=== PATIENT | female | born 1990 | race Caucasian/White ===

== ENCOUNTER 2019-02-19 22:02 | Inpatient (IN) | payer MEDICAID, SELFPAY ==
[2019-02-19 21:51] LABS: ROM Internal Control Test YES-OK TO RESULT pt. (Internal QC); ROM Patient Test POSITIVE (Negative)
[2019-02-19] MEDS: 0.9% Saline Lock 10 ML Syringe IV ×2 (23:00→23:10)
[2019-02-19 23:22] LABS: Absolute Lymphocyte Count 2.61 X10^3/ul (0.83-4.51); Absolute Neutrophil Count 10.8 X10^3/uL (2.0-7.7); Basophil# 0.01 X10^3/uL; Basophil% 0.1 % (0-1); Eosinophil# 0.15 X10^3/uL; Hematocrit 33.9 % (37-47); Hemoglobin 11.6 g/dl (12.0-15.0); Lymphocyte # 2.61 X10^3/ul (4.0); Lymphocyte % 17.9 % (19-41); Mean Corp Hgb Conc 34.2 g/gl (32-36); Mean Corpuscular Hgb 30.3 pg (27.0-32.0); Mean Corpuscular Volume 88.5 fL (81-99); Mean Platelet Vol. 9.9 fl (6.2-12.0); Monocyte# 0.97 X10^3/uL; Monocyte% 6.7 % (0-10); Neutrophil # 10.78 X10^3/uL (2.7-7.7); POSITIVE COUNT NO; POSITIVE DIFFERENTIAL NO; POSITIVE MORPHOLOGY NO; Platelet Count 255 K/mm3 (150-450); RBC Distribution Width SD 45.6 fl (35.1-43.9); Red Blood Count 3.83 M/mm3 (4.2-5.4); White Blood Count 14.6 K/mm3 (4.4-11.0)
[2019-02-20] MEDS: Nalbuphine 10 MG/ML Ampul IV (03:40)
[2019-02-20] MEDS: 0.9% Saline Lock 10 ML Syringe IV ×4 (03:40→18:19)
[2019-02-20] MEDS: Lactated Ringers 1,000 ML 50 ML IV ×3 (05:02→16:40)
[2019-02-20] MEDS: Oxytocin 30 units/NS 500 ml 30 UNITS/500 ML IV.SOLN IV (05:04)
[2019-02-20] MEDS: Ondansetron 4 MG/2 ML Vial IV ×3 (05:15→18:19)
[2019-02-20] MEDS: fentaNYL-bupivacaine (epidural) 100 ML BAG EPIDURAL ×3 (06:36→14:52)
--- NOTE | 2019-02-20 10:15 | HP.PCM_ITS ---
- Problem List (1) PROM (premature rupture of membranes) Status: Acute (2) Luong gestation with first Status: Acute (3) History of anxiety Status: Acute (4) History of epilepsy Status: Acute (5) Asthma Status: Acute (6) Rh negative status during Status: Acute (7) History of marijuana use Status: Acute History Date of Admission: 02/19/19 Final ACACIA: 03/03/19 Final ACACIA Source: US <20 weeks Gestational age: 38 Weeks and 3 Days History of this : This is a 28 year-old, G [1], P [0], at 38 weeks gestational age by first trimester US. Premature rupture of membranes around 1920 with clear fluid leakage, no contractions. Presented to labor and delivery with ROM plus negative and grossly ruptured. Denies any headaches, visual changes, chest pain, shortness of breath or vaginal bleeding. Good movement. Allergies Penicillins Allergy (Verified 02/19/19 23:23) Rash sodium benzoate Adverse Reaction (Verified 02/19/19 23:24) Other Home Medications: Home Medications Albuterol Inhaler [Ventolin Hfa (SP)] 2 puff INHALATION Q6H PRN PRN 02/19/19 Calcium Carbonate [Calcium] 500 mg PO DAILY 02/19/19 Ferrous Sulfate 325 mg PO DAILY 02/19/19 Vits [Prenatabs FA] 1 tablet PO DAILY 02/19/19 Smoking Status: Never smoker Alcohol: None Substance Use Type: Marijuana - No current use, urine tox screen negative in 3rd trimester. Heart Tracin, moderate variability, accels, 2 periodic decelerations with movement. TOCO Analysis: Contractions every 2-3 minutes, moderate. Pitocin at 2 mu's History Past Pregnancies: Past Pregnancies Delivery Date Name GA/Weeks Outcome Route Weight Gender Labor Length Anesthesia Delivery Location Provider FOB Labs: GBS negative. 01/08/19-Urine tox screen negative RPR negative Rubella Immune HBsAG negative HIV negative Unable to complete 1hr GCT due to allergy. BS normal range. O negative Expected Delivery Method: Spontaneous Vaginal Review of Systems Constitutional: Denies: Chills, Fever, Weight Change Eyes: Denies: Blurred vision Cardiovascular: Reports: Edema. Denies: Chest Pain Respiratory: Denies: Shortness of Breath Gastrointestinal: Denies: Abdominal Pain Genitourinary: Denies: Dysuria Psychiatric: Denies: Anxiety, Depression, Homicidal Ideations, Suicidal Ideations Physical Exam General: Alert, Oriented x3, No apparent distress HEENT: Atraumatic, Normocephalic Cardiovascular: Regular rate, Regular Rhythm, No murmurs Lungs: Clear to auscultation, Normal air movement, No rhonchi, No wheeze Abdomen: Soft, Non Tender, Gravid Extremities:: Other - +1 BLE edema SEARCH ENGINE OPTIMIZATION ANALYST: Normal external genitalia Estimated gestational size: Appropriate for gestational size Presentation: Cephalic Cervix Dilation (cm): 6.5 - vertex Station: 1 Effacement (%): 95 Assessment/Plan All Active Problems PROM (premature rupture of membranes) (Acute) Luong gestation with first (Acute) History of anxiety (Acute) History of epilepsy (Acute) Asthma (Acute) Rh negative status during (Acute) History of marijuana use (Acute) This is a 28 year-old, G [1], P [0], at 38 weeks gestational age. A:Premature Rupture of Membranes Category 2 FHT P: 1) Admit to L&D. 2) Routine labs 3) Epidural for pain management 4) Cytotec for cervical ripening then Pitocin started, continue with active management. 5) notified of patient in labor and collaborative physician.
--- NOTE | 2019-02-20 11:11 | CASEMGMT ---
SW did receive referral for THC use in first trimester. Pt is in labor at this time. As per RN, pt explains she used marijuana prior to knowing was and has not used since. SW will let SW here on Friday to follow up w/pt, will not see her today since she is currently in labor. ANA LILIA Garcia
--- NOTE | 2019-02-20 11:58 | PCM.PN.OB ---
Patient Problems: Active and Suspected Problems PROM (premature rupture of membranes) (Acute) Luong gestation with first (Acute) History of anxiety (Acute) History of epilepsy (Acute) Asthma (Acute) Rh negative status during (Acute) History of marijuana use (Acute) Subjective: Resting well in bed, sitting up with peanut ball. and friend at bedside. Denies any complaints, epidural effective. Objective: FHT 135, moderate variability, accels, periodic variable decels, Category 2 TOCO: every 2 minutes, strong - Physical Exam Weight: 180 lb 12.465 oz Body Mass Index (BMI) 30.0 Intake and Output for Last 24 Hours 02/18/19 02/19/19 02/20/19 23:59 23:59 23:59 Intake Total 1955 Balance 1955 Laboratory Tests Past 24 Hrs 02/19/19 02/19/19 02/19/19 21:25 23:00 23:00 WBC 14.6 H RBC 3.83 L Hgb 11.6 L Hct 33.9 L MCV 88.5 MCH 30.3 MCHC 34.2 RDW 14.0 RDW Differential 45.6 H Plt Count 255 MPV 9.9 Immature Gran % (Auto) 0.300 Neut % (Auto) 74.0 H Lymph % (Auto) 17.9 L [place] % (Auto) 6.7 Eos % (Auto) 1.0 Baso % (Auto) 0.1 Absolute Neuts (auto) 10.8 H Absolute Lymphs (auto) 2.61 Total Counted Not Reportable Vag Amniotic Fld Detect POSITIVE H Blood Type O NEGATIVE Antibody Screen POSITIVE H Antibody Identification ANTI-D Medical Necessity - Tobacco Use Smoking Status: Never smoker Assessment/Plan All Active Problems PROM (premature rupture of membranes) (Acute) Luong gestation with first (Acute) History of anxiety (Acute) History of epilepsy (Acute) Asthma (Acute) Rh negative status during (Acute) History of marijuana use (Acute) A:Active labor, progressing Category 2 FHT P: 1) Continue with positional changes. Side lying release completed and then placed in hands and knees. 2) Continue with active management. 3) updated on patient status
--- NOTE | 2019-02-20 14:51 | PCM.PN.OB ---
Patient Problems: Active and Suspected Problems PROM (premature rupture of membranes) (Acute) Luong gestation with first (Acute) History of anxiety (Acute) History of epilepsy (Acute) Asthma (Acute) Rh negative status during (Acute) History of marijuana use (Acute) Subjective: Became emotional, stated something felt different and increased pressure. Comfortable with epidural. Family at bedside. Objective: FHT 135, moderate variability, accels, no decels. Category 1 TOCO:every 2-3 minutes, strong. Pitocin at 2 mu's Cervical exam: complete/100%/+2 station - Physical Exam Weight: 180 lb 12.465 oz Body Mass Index (BMI) 30.0 Intake and Output for Last 24 Hours 02/18/19 02/19/19 02/20/19 23:59 23:59 23:59 Intake Total 1955 Balance 1955 Laboratory Tests Past 24 Hrs 02/19/19 02/19/19 02/19/19 21:25 23:00 23:00 WBC 14.6 H RBC 3.83 L Hgb 11.6 L Hct 33.9 L MCV 88.5 MCH 30.3 MCHC 34.2 RDW 14.0 RDW Differential 45.6 H Plt Count 255 MPV 9.9 Immature Gran % (Auto) 0.300 Neut % (Auto) 74.0 H Lymph % (Auto) 17.9 L [place] % (Auto) 6.7 Eos % (Auto) 1.0 Baso % (Auto) 0.1 Absolute Neuts (auto) 10.8 H Absolute Lymphs (auto) 2.61 Total Counted Not Reportable Vag Amniotic Fld Detect POSITIVE H Blood Type O NEGATIVE Antibody Screen POSITIVE H Antibody Identification ANTI-D Medical Necessity - Tobacco Use Smoking Status: Never smoker Assessment/Plan All Active Problems PROM (premature rupture of membranes) (Acute) Luong gestation with first (Acute) History of anxiety (Acute) History of epilepsy (Acute) Asthma (Acute) Rh negative status during (Acute) History of marijuana use (Acute) A: Active Labor, progressing Category 1 FHT P: 1) Complete cervical dilation, will start pushing efforts. Patient not feeling much pressure, requesting anesthesia reduce epidural. Reviewed pain or pressure may return, consents. 2) notified of patient status.
--- NOTE | 2019-02-20 20:37 | PN.OBGYN_ITS ---
Patient Problems: Active and Suspected Problems PROM (premature rupture of membranes) (Acute) Luong gestation with first (Acute) History of anxiety (Acute) History of epilepsy (Acute) Asthma (Acute) Rh negative status during (Acute) History of marijuana use (Acute) Subjective: Pushing during contractions. Epidural effective but having some increased pain on right side. at bedside. Objective: FHT 155, accels, variable decels, Category 2 TOCO: every 2-3 minutes Pitocin at 10mu's Complete +2 almost +3 station. Labial separation and movement of head. Caput present. - Physical Exam Weight: 180 lb 12.465 oz Body Mass Index (BMI) 30.0 Intake and Output for Last 24 Hours 02/18/19 02/19/19 02/20/19 23:59 23:59 23:59 Intake Total 3891 / 3891 Output Total 2300 / 2300 Balance 1591 / 1591 Laboratory Tests Past 24 Hrs 02/19/19 02/19/19 02/19/19 21:25 23:00 23:00 WBC 14.6 H RBC 3.83 L Hgb 11.6 L Hct 33.9 L MCV 88.5 MCH 30.3 MCHC 34.2 RDW 14.0 RDW Differential 45.6 H Plt Count 255 MPV 9.9 Immature Gran % (Auto) 0.300 Neut % (Auto) 74.0 H Lymph % (Auto) 17.9 L [place] % (Auto) 6.7 Eos % (Auto) 1.0 Baso % (Auto) 0.1 Absolute Neuts (auto) 10.8 H Absolute Lymphs (auto) 2.61 Total Counted Not Reportable Vag Amniotic Fld Detect POSITIVE H Blood Type O NEGATIVE Antibody Screen POSITIVE H Antibody Identification ANTI-D Medical Necessity - Tobacco Use Smoking Status: Never smoker Assessment/Plan All Active Problems PROM (premature rupture of membranes) (Acute) Luong gestation with first (Acute) History of anxiety (Acute) History of epilepsy (Acute) Asthma (Acute) Rh negative status during (Acute) History of marijuana use (Acute) A:Active Labor, second stage Category 2 FHT P: 1) Pushing efforts since approximately 1500. Pushing ineffective and contractions spaced out. Pitocin increased. Patient with minimal pushing effort during contractions and spacing. Contraction pattern returned and pushing effort effect. heart rate stable. Reviewed with patient option for section if she declined further pushing due to length of time, although pushing efforts were limited due to contraction spacing. She wishes to proceed with labor. If proceeds and needs vacuum extraction will request . 2) notified of patient status and updated. She agrees with plan at this time. 3) Continue with pushing efforts at this time.
[2019-02-20] MEDS: Oxytocin 30 units/NS 500 ml 30 UNITS/500 ML IV.SOLN 334 UNITS IV (21:47)
--- NOTE | 2019-02-20 22:00 | PCM.OPRPT ---
Report of Operation specifications writer: Candace Gardner Vaginal Delivery Maternal Presentation: Spontaneous Rupture of Membranes Method of Induction: Pitocin Amniotic Membrane Rupture Type: Spontaneous at home Amniotic Fluid Description: Clear Final ACACIA: 03/03/19 Gestational age: 38 Weeks and 3 Days Date of Procedure: 02/20/19 Pre-Operative Diagnosis: (1) SROM (2) Maternal exhaustion Post-Operative Diagnosis: Same Surgery/ Procedure Performed: Vacuum Assisted Vaginal Delivery Type of Anesthesia: Epidural Description of Procedure: Called to room when patient C/C/+2 and pushing with CNM. Patient exhausted from pushing. Patient assessed & confirmed good maternal pushing effort. head position checked. Discussed R/B/A of vacuum and patient agreed to proceed for maternal exhaustion. Bladder drained with borrego catheter. Vacuum placed & position confirmed on head. With the next contraction and 1 pull of the vacuum the head delivered. Vacuum released. head gently guided to allow delivery of anterior & posterior shoulders. No excess traction placed on head. Body delivered & placed on maternal abdomen. 3VC clamped & cut in delayed fashion. Good uterine tone obtained. Presentation: KATI Placental Delivery Description: Expressed Placenta Disposition: [facility] Cord Vessel Description: 3 Vessels Cord Entanglement: None Estimated Blood Loss: 400ml A gender: Female (1 minute): 8 (5 minute): 9 Episiotomy Description: None Laceration: 1st degree - perineal - repaired with 3-0 vicryl Medications given after delivery: IV Pitocin Complications: None
[2019-02-20] MEDS: Oxytocin 30 units/NS 500 ml 30 UNITS/500 ML IV.SOLN 167 UNITS IV (22:18)
[2019-02-21] MEDS: Ibuprofen 600 MG Tablet PO ×2 (00:21→08:19)
[2019-02-21] MEDS: Acetaminophen 500 MG Tablet 1000 MG PO ×3 (02:26→22:05)
[2019-02-21 08:10] VITALS: BP 112/73; PULSE 76; RESP 16; TEMP 36.6; O2SAT 96
[2019-02-21 12:40] VITALS: BP 122/82; PULSE 78; RESP 16; TEMP 36.6; O2SAT 96
--- NOTE | 2019-02-21 12:45 | PCM.PN.OB ---
Patient Problems: Active and Suspected Problems PROM (premature rupture of membranes) (Acute) Luong gestation with first (Acute) History of anxiety (Acute) History of epilepsy (Acute) Asthma (Acute) Rh negative status during (Acute) History of marijuana use (Acute) Subjective: Doing well per patient and nursing staff. Ambulating and taking PO without difficulty. Voiding and passing flatus. Pain control with Motrin and Tylenol but states is still increased. Having lower back pain, abdominal cramping and perineal pain. without difficulty at this time. Denies any chest pain, increased SOB, increased vaginal or clots. - Physical Exam General: Alert, Oriented x3, Cooperative HEENT: Atraumatic, Normocephalic Neck: Trachea Midline Lungs: Clear to auscultation, Normal air movement, No rhonchi, No wheeze Cardiovascular: Regular rate, Regular Rhythm, No murmurs Abdomen: Bowel Sounds Present, Soft, - - Appropriately tender, Fundus firm 2 below U Extremities: No edema Psych/Mental Status: Normal Affect, Appropriate Comment: Perineum nonedematous, lochi rubra small amount. Sutures well appoximated. Weight: 180 lb 12.465 oz Body Mass Index (BMI) 30.0 Intake and Output for Last 24 Hours 02/19/19// 23:59 23:59 23:59 Intake Total 5339 / 5339 Output Total 2900 / 2900 800 / 800 Balance 2439 / 2439 -800 / -800 Medical Necessity - Tobacco Use Smoking Status: Never smoker Assessment/Plan All Active Problems PROM (premature rupture of membranes) (Acute) Luong gestation with first (Acute) History of anxiety (Acute) History of epilepsy (Acute) Asthma (Acute) Rh negative status during (Acute) History of marijuana use (Acute) A: PPD #1 VAVD P: 1) Routine care. 2) Reviewed instructions 3) Discussed pain management. Ok to take oxycodone for pain. Reviewed alternating Tylenol and Ibuprofen. Offered Kpad, tuck pads, dermaplast spray, and ice pack. 4) Planning D/C home tomorrow.
[2019-02-21] MEDS: oxyCODONE 5 MG Tablet PO ×4 (12:57→23:48)
[2019-02-21 16:45] VITALS: BP 118/82; PULSE 80; RESP 16; TEMP 36.5; O2SAT 98
[2019-02-21 20:17] VITALS: BP 119/80; PULSE 85; RESP 16; TEMP 36.9; O2SAT 96
[2019-02-22 02:00] VITALS: BP 110/63; PULSE 90; RESP 17; TEMP 36.4; O2SAT 96
[2019-02-22] MEDS: Ibuprofen 600 MG Tablet PO (03:43)
--- NOTE | 2019-02-22 07:20 | PCM.PN.OB ---
Patient Problems: Active and Suspected Problems PROM (premature rupture of membranes) (Acute) Luong gestation with first (Acute) History of anxiety (Acute) History of epilepsy (Acute) Asthma (Acute) Rh negative status during (Acute) History of marijuana use (Acute) Subjective: pt seen at bedside, c/o some discomfort on perineum but otherwise doing well. pt reports the motrin does help but can't take regularly due to vomiting. pt reports breast feeding going well. Lochia mild. voiding w/o difficulty. - Physical Exam General: Alert, Oriented x3 Vital Signs Temp Pulse Resp BP Pulse Ox 97.6 F L 90 17 110/63 96 02/22/19 02:00 02/22/19 02:00 02/22/19 02:00 02/22/19 02:00 02/22/19 02:00 Oxygen Delivery Method Room Air Weight: 82 kg Body Mass Index (BMI) 30.0 Intake and Output for Last 24 Hours 02/20/19 02/21/19 02/22/19 23:59 23:59 23:59 Intake Total 5339 / 5339 Output Total 2900 / 2900 1400 / 1400 Balance 2439 / 2439 -1400 / -1400 Medical Necessity - Tobacco Use Smoking Status: Never smoker Assessment/Plan All Active Problems PROM (premature rupture of membranes) (Acute) Luong gestation with first (Acute) History of anxiety (Acute) History of epilepsy (Acute) Asthma (Acute) Rh negative status during (Acute) History of marijuana use (Acute) PPD#2, doing well routine care pain mgmt dc home
--- NOTE | 2019-02-22 07:27 | DCINST_ITS ---
Discharge Diet: No Restrictions Discharge Activity: Return to Normal Activity, May not drive while taking narcotic pain medications., May Shower May resume sexual activity in: 4-6 weeks Additional Activity Instructions:: Nothing in the vagina for 4-6 weeks. You may return to work/school in 6 weeks. Call your doctor if your incision/area has: Continuous Slow Oozing, Sudden Increased Bleeding, Increased Pain/ Swelling, Increased Redness, Foul Smelling Discharge Additional Instructions: If you experience any of the following, contact your healthcare provider. * Bleeding that soaks a pad every hour for 2 hours * Fever 100.4 or higher * Unrelieved incision or abdominal pain * Swelling, redness, discharge or bleeding from your incision or episiotomy site * Your incision begins to separate * Problems urinating (including inability to urinate or burning while urinating). * Visual changes * Severe headache * Flu-like symptoms * Pain or redness in one of both of your breasts * Pain, warmth, tenderness or swelling in your legs, especially the calf area * Frequent nausea and vomiting * Symptoms of depression or anxiety If you experience any of the following, call 911 or go to the nearest Emergency Room. * Chest pain * Problems breathing * Seizure activity * Partial or complete paralysis of a body part, slurred speech, weakness or drooping of the face, or a sudden inability to walk or hold your balance Allergies/Adverse Reactions: Allergies Penicillins Allergy (Verified 02/19/19 23:23) Rash sodium benzoate Adverse Reaction (Verified 02/19/19 23:24) Other Medications to take at Discharge Albuterol Inhaler [Ventolin Hfa (SP)] 2 puff INHALATION Q6H PRN PRN 02/19/19 Calcium Carbonate [Calcium] 500 mg PO DAILY 02/19/19 Ferrous Sulfate 325 mg PO DAILY 02/19/19 Vits [Prenatabs FA] 1 tablet PO DAILY 02/19/19 Ibuprofen [Motrin] 600 mg PO Q6H PRN PRN #30 tab 02/22/19 Oxycodone [Oxyfast] 5 mg PO Q4H PRN PRN #5 ml 02/22/19 Oxycodone [Oxyir] 5 mg PO Q4H PRN PRN 3 Days #5 tablet 02/22/19 The following prescriptions were given: Oxycodone [Oxyfast] 5 mg PO Q4H PRN PRN #5 ml PRN Reason: Pain Ibuprofen [Motrin] 600 mg PO Q6H PRN PRN #30 tab PRN Reason: Mild Pain (1-11/15) When: Call to make an appointment with your doctor in 6 weeks. If you had elevated Blood Pressure or 4th degree laceration you will need to be seen in 2 weeks. Primary Care Physician: Care Physician,No Primary [Primary Care Provider] - Test Results: Test results from this visit will be discussed in further detail at your follow- up appointment, if applicable.
--- NOTE | 2019-02-22 07:33 | DCINST_ITS ---
Discharge Diet: No Restrictions Discharge Activity: Return to Normal Activity, May not drive while taking narcotic pain medications., May Shower May resume sexual activity in: 4-6 weeks Additional Activity Instructions:: Nothing in the vagina for 4-6 weeks. You may return to work/school in 6 weeks. Call your doctor if your incision/area has: Continuous Slow Oozing, Sudden Increased Bleeding, Increased Pain/ Swelling, Increased Redness, Foul Smelling Discharge Additional Instructions: If you experience any of the following, contact your healthcare provider. * Bleeding that soaks a pad every hour for 2 hours * Fever 100.4 or higher * Unrelieved incision or abdominal pain * Swelling, redness, discharge or bleeding from your incision or episiotomy site * Your incision begins to separate * Problems urinating (including inability to urinate or burning while urinating). * Visual changes * Severe headache * Flu-like symptoms * Pain or redness in one of both of your breasts * Pain, warmth, tenderness or swelling in your legs, especially the calf area * Frequent nausea and vomiting * Symptoms of depression or anxiety If you experience any of the following, call 911 or go to the nearest Emergency Room. * Chest pain * Problems breathing * Seizure activity * Partial or complete paralysis of a body part, slurred speech, weakness or drooping of the face, or a sudden inability to walk or hold your balance Allergies/Adverse Reactions: Allergies Penicillins Allergy (Verified 02/19/19 23:23) Rash sodium benzoate Adverse Reaction (Verified 02/19/19 23:24) Other Medications to take at Discharge Albuterol Inhaler [Ventolin Hfa] 2 puff INHALATION Q6H PRN PRN 02/19/19 Calcium Carbonate [Calcium] 500 mg PO DAILY 02/19/19 Ferrous Sulfate 325 mg PO DAILY 02/19/19 Vits [Prenatabs FA ] 1 tablet PO DAILY 02/19/19 Ibuprofen [Motrin] 600 mg PO Q6H PRN PRN #30 tab 02/22/19 Oxycodone HCl/Acetaminophen [Percocet 5/325] 1 - 2 tab PO Q4H PRN PRN 3 Days #5 tab 02/22/19 The following prescriptions were given: Oxycodone HCl/Acetaminophen [Percocet 5/325] 1 - 2 tab PO Q4H PRN PRN 3 Days #5 tab PRN Reason: Pain Ibuprofen [Motrin] 600 mg PO Q6H PRN PRN #30 tab PRN Reason: Mild Pain (1-11/15) When: Call to make an appointment with your doctor in 6 weeks. If you had elevated Blood Pressure or 4th degree laceration you will need to be seen in 2 weeks. Primary Care Physician: Care Physician,No Primary [Primary Care Provider] - Test Results: Test results from this visit will be discussed in further detail at your follow- up appointment, if applicable.
[2019-02-22] MEDS: Acetaminophen 500 MG Tablet 1000 MG PO ×2 (07:57→15:20)
[2019-02-22 08:45] VITALS: BP 126/88; PULSE 90; RESP 16; TEMP 36.7; O2SAT 98
[2019-02-22] MEDS: oxyCODONE 5 MG Tablet PO (09:04)
[2019-02-22 14:00] VITALS: BP 122/79; PULSE 80; RESP 16; TEMP 36.6; O2SAT 99
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
[2019-02-22] MEDS: Senna/Docusate Sodium 1 Tablet PO (15:20)
== END 2019-02-22 16:20 | disposition home or self-care (01) | DRG 560 ==
LOC: WPOUT 22:04
PROVIDERS: Advanced Practice Midwife; Admitting Provider Obstetrics & Gynecology; Referring Provider Obstetrics & Gynecology; Visit Provider Obstetrics & Gynecology
DX: O42.90 Premature rupture of membranes, unspecified as to length of time between rupture and onset of labor, unspecified weeks of gestation (principal); O75.81 Maternal exhaustion complicating labor and delivery; O70.0 First degree perineal laceration during delivery; O76 Abnormality in fetal heart rate and rhythm complicating labor and delivery; O99.52 Diseases of the respiratory system complicating childbirth; J45.909 Unspecified asthma, uncomplicated; Z67.91 Unspecified blood type, Rh negative; Z88.0 Allergy status to penicillin; Z3A.38 38 weeks gestation of pregnancy; Z37.0 Single live birth
CPT/HCPCS: 59025; 59050; 84112; 85025; 86850; 86870; 86900; 99218; J7120; A4216; G0378; J2405

== ENCOUNTER 2021-03-06 14:37 | Outpatient (RCR) | payer MEDICAID, SELFPAY | END 2021-03-07 23:59 | LOC: DC 14:37 | PROVIDERS: Visit Provider Advanced Practice Midwife | DX: O24.410 Gestational diabetes mellitus in pregnancy, diet controlled (principal); Z3A.00 Weeks of gestation of pregnancy not specified | CPT/HCPCS: 97802 ==

== ENCOUNTER 2021-03-28 13:00 | Outpatient (RCR) | payer MEDICAID, SELFPAY | END 2021-03-28 23:59 | disposition home or self-care (01) | LOC: DC 13:00 | PROVIDERS: Visit Provider Advanced Practice Midwife | DX: O24.410 Gestational diabetes mellitus in pregnancy, diet controlled (principal) | CPT/HCPCS: G0108 ==

== ENCOUNTER 2021-04-09 15:30 | Inpatient (IN) | payer MEDICAID, SELFPAY ==
[2021-04-09] VITALS (35 sets, daily range): BP systolic 104–140; BP diastolic 59–93; PULSE 95–127; TEMP 36.2–36.9; O2SAT 82–100; BMI 26.6
--- NOTE | 2021-04-09 | PLAC_PTH ---
PATIENT: ALEENA BARBER LOC: WP U#:[id number] AGE/SX: 30/F ROOM: WP011 RE04/09/[address]: Dr. Junaid Carlin MD : 1990 BED: 1 DIS: 04/11/2021 SPEC #: [id number] RECD: 04/10/21 02:44 STATUS: EDUARDO WAGNER #: [id number] SHYANNE: 04/09/21 00:[address]: Candace Gardner DEPT: SURGICAL PATHOLOGY RECD BY: Sanjeev Mckeon ENTERED: 04/10/21 08:09 SP TYPE: PLACENTA OTHR DR: Dr. Bang Mccoy MD No Primary Care Phys Tissues: Placenta, NOS Procedures: Surgery Specimen Level V HEADER OPERATION: Vaginal delivery PRE-OP DIAGNOSIS: Cord insertion TISSUE SUBMITTED: Placenta MICROSCOPIC DIAGNOSIS Luong placenta (422 gm): Umbilical cord ? trivascular with no inflammation. Placental membranes ? no pathologic change. Placental disc ? mild Magdi-Shaji change and intervillous congestion. AM:servando 04/12/2021 MICROSCOPIC DESCRIPTION Slides are reviewed. GROSS DESCRIPTION SPECIMEN: PLACENTA / CLINICAL INFORMATION: A. Weight: 3.1 kg B. Gestational Age: 38 weeks C. Sex: Female PLACENTAL WEIGHT (POST FIXATION): 422 gm PLACENTAL DIMENSIONS: 15 x 16 x 3 cm PLACENTAL SHAPE: Usual ovoid PLACENTAL WEIGHT FOR GESTATIONAL AGE: Within 10-99th percentile MEMBRANES - Present A. Insertion: Marginal B. Site of rupture from edge: 4 cm from edge of placental disc C. Color of membrane: Thomas-allison D. Abnormalities: None UMBILICAL CORD - Present A. Color: Thomas-allison B. Insertion: Paracentral C. Length: 27 cm D. Diameter: 1 cm E. Number of vessels: Three F. Abnormalities: None PLACENTAL DISC - Present A. Color of surface: Thomas-allison B. surface abnormalities: None C. Maternal cotyledons: Intact with minimal tears D. Attached retro placental clot: No clot E. Cut surface: Dark red and spongy F. Lesions: None G. Separate clot: Absent SECTIONS SUBMITTED: 1. Membrane roll 2. Cord, maternal end 3. Cord, end 4. Placental disc, and maternal surfaces 5. Placental disc, and maternal surfaces 6. Placental disc, and maternal surfaces SJ:servando 04/11/2021 TC:5 CPT: 84729
[2021-04-09 15:18] LABS: ROM Internal Control Test YES-OK TO RESULT pt. (Internal QC)
[2021-04-09 15:19] LABS: ROM Patient Test POSITIVE (Negative)
[2021-04-09] MEDS: Lactated Ringers 1,000 ML 50 ML IV (16:25)
[2021-04-09] MEDS: Oxytocin 30 units/NS 500 ml 30 UNITS/500 ML IV.SOLN IV (16:41)
[2021-04-09 16:50] LABS: Absolute Lymphocyte Count 0.81 X10^3/uL (0.83-4.51); Absolute Neutrophil Count 8.7 X10^3/uL (2.0-7.7); Basophil# 0.02 X10^3/uL; Basophil% 0.2 % (0-1); Eosinophil# 0.01 X10^3/uL; Eosinophils% 0.1 % (0-5); Hematocrit 38.6 % (37-47); Hemoglobin 12.7 g/dL (12.0-15.0); Lymphocyte # 0.81 X10^3/ul (0.83-4.51); Mean Corp Hgb Conc 32.9 g/dL (32-36); Mean Corpuscular Hgb 29.1 pg (27.0-32.0); Mean Corpuscular Volume 88.3 fL (81-99); Mean Platelet Vol. 9.5 fl (6.2-12.0); Monocyte# 0.47 X10^3/uL; Monocyte% 4.6 % (0-10); NRBC Flagged by Analyzer 0 % (0-5); Neutrophil # 8.73 X10^3/uL (2.7-7.7); Neutrophil % 86.3 % (47-70); Platelet Count 403 K/mm3 (150-450); RBC Distribution Width CV 14.7 % (11.6-14.6); RBC Distribution Width SD 47.1 fl (35.1-43.9); Red Blood Count 4.37 M/mm3 (4.2-5.4); White Blood Count 10.1 K/mm3 (4.4-11.0)
[2021-04-09] MEDS: Lactated Ringers 500 ML 999 ML IV (17:25)
[2021-04-09 17:30] LABS: Bedside Glucose 76 mg/dL (70-110)
[2021-04-09] MEDS: fentaNYL-bupivacaine (epidural) 100 ML BAG EPIDURAL (18:32)
[2021-04-09] MEDS: Ondansetron 4 MG/2 ML Vial IV (19:10)
[2021-04-09 19:32] LABS: Amphetamine Urine VISTA NEGATIVE (<1000 ng/mL); Barbiturate Urine VISTA NEGATIVE (< 200 ng/mL); Benzodiazepine Urine VISTA NEGATIVE (< 200 ng/mL); Cocaine Urine VISTA NEGATIVE (< 300 ng/mL); Ecstacy Urine VISTA NEGATIVE (< 500 ng/mL); Methadone Urine VISTA NEGATIVE (< 300 ng/mL); PCP Urine VISTA NEGATIVE (< 25 ng/mL); THC Urine VISTA POSITIVE (< 50 ng/mL); Vista UDS pH Range 5
[2021-04-09] MEDS: Oxytocin 30 units/NS 500 ml 30 UNITS/500 ML IV.SOLN 334 UNITS IV (20:04)
[2021-04-09 20:21] LABS: Bedside Glucose 73 mg/dL (70-110)
[2021-04-09 20:21] LABS: Bedside Glucose 70 mg/dL (70-110)
--- NOTE | 2021-04-09 20:33 | OP.PCM_ITS ---
Assessment & Plan (1) (normal spontaneous vaginal delivery): (2) COVID-19 affecting childbirth: (3) GDM, class A2: Maternal Data Information ACACIA Calculator Estimated Delivery Date Method Current WG Current Estimate 04/22/21 Manual 38w 1d Vaginal Delivery Maternal Presentation Maternal Presentation: Spontaneous Rupture of Membranes Maternal Presentation: PROM Type of Induction: Pitocin (augmentation) Operative Information Date of Procedure: 04/09/21 Pre-Operative Diagnosis: PROM Post-Operative Diagnosis: Surgery / Procedure Performed: Spontaneous Vaginal Delivery Type of Anesthesia: Epidural Estimated Blood Loss: 200ml Time of Delivery: 20:02 Findings Description of Procedure: Progressed to complete and urged to push. Epidural for pain management. of viable female infant over first-degree perineal laceration. Apgars 8, 9. Infant head delivered with cord around the neck x1, delivered through, body immediately forthcoming and placed on maternal abdomen. Spontaneous cry, mouth and nares suction for secretions. Pitocin started effective third stage management. Placenta delivered intact, three-vessel cord via Gomez, cord began to shear, specimen sent to pathology for possible marginal/velamentous insertion. Perineum inspected and revealed small first- degree laceration, repaired under epidural with 3.0 Vicryl repeat. Fundus firm and hemostasis achieved, EBL 200 mL. Vaginal sweep completed by me, sponge and instrument count correct. Mom and baby stable, planning to breast-feed, bonding well. [facility] for delivery due to GDM class A2. Presentation: Vertex and HUNTER Amniotic Membrane Rupture Type: Spontaneous Time of Membrane Rupture: 1200 Amniotic Fluid Description: Clear Placental Delivery Description: Spontaneous Placenta Disposition: Sent to Pathology Cord Vessel Description: 3 Vessels Cord Entanglement: Around neck x 1, loose Nuchal Cord Compression: Without compression Infant A Gender: Female (1 minute): 8 (5 minute): 9 Delayed Cord Clamping: Yes Post Vaginal Delivery Medications Given After Delivery: IV Pitocin Episiotomy Description: None Laceration: Perineal Extension/lac and 1st degree Complication Complications: None
--- NOTE | 2021-04-09 20:33 | PCM.HP.OB ---
HPI - General General Date of Admission: 04/09/21 HPI Narrative ALEENA BARBER, is a 30 F who presents at 38w1d by 7w3d US with PROM at 1200 today for clear fluid. Started having respiratory symptoms on 04/01/21 and tested positive for COVID on 04/05/21, 8 days post positive test. Cough and SOB at times, nebulizer and inhaler for symptom relief. No chest pain. complicated by GDMA2 on insulin therapy, history of anxiety, asthma, FOB born with spina bifida occulta and cystinuria. Maternal Data Information ACACIA Calculator Estimated Delivery Date Method Current WG Current Estimate 04/22/21 Manual 38w 1d PFSH PFS Medical History (Updated 04/09/21 @ 20:48 by Candace Gardner CNM) Anxiety Family history of hearing loss at age younger than 7 years Gestational diabetes Headache PCOS (polycystic ovarian syndrome) Seizures Home Medications Prenatabs FA 1 tab PO DAILY 02/19/19 [History Last Taken 04/04/21] albuterol sulfate [Ventolin HFA] 2 puff INHALATION Q6H PRN PRN 02/19/19 [History Last Taken 04/02/21] calcium carbonate 500 mg PO DAILY 02/19/19 [History Last Taken 02/18/19 17:00] ferrous sulfate 325 mg PO DAILY 02/19/19 [History Last Taken 04/04/21] albuterol sulfate [Proventil] 2.5 mg INHALATION Q4H PRN 04/09/21 [History Last Taken 04/09/21 11:00] insulin NPH and regular human [Novolin 70-30 FlexPen U-100] 16 unit SUBCUT QHS 04/09/21 [History Last Taken 04/08/21 21:30] Allergy/AdvReac Type Severity Reaction Status Date / Time Penicillins Allergy Rash Verified 04/09/21 14:32 sodium benzoate AdvReac Other Verified 04/09/21 14:32 Surgical History (Updated 04/09/21 @ 16:49 by Berta Razo) History of gynecologic surgery Social History Smoking Status: Never smoker History Elective abortions Hx Para 1 Spontaneous abortions Hx # Term Pregnancies Ectopic pregnancies Hx # Pregnancies Multiple births # of living children NST FHR Rate Baby A Baseline: 135 Variability:: Moderate Accelerations:: 15 x 15 Decelerations:: None FHR Category:: Category I Uterine Activity:: Every 3 minutes, strong Vital Signs Vital Signs Vital Signs: 04/09/21 14:28 04/09/21 14:40 04/09/21 16:59 Temperature 97.4 F L 98.1 F Temperature Source Temporal Temporal Pulse Rate 126 H 115 H 102 H Blood Pressure 129/80 H 120/75 BP Systolic 129 120 BP Diastolic 80 75 Pulse Ox 97 97 04/09/21 17:00 04/09/21 18:10 04/09/21 18:19 Temperature Temperature Source Pulse Rate 108 H 108 H Blood Pressure 130/83 H BP Systolic 130 BP Diastolic 83 Pulse Ox 82 97 04/09/21 18:24 04/09/21 18:29 04/09/21 18:34 Temperature Temperature Source Pulse Rate 98 106 H 105 H Blood Pressure 129/84 H 124/85 H 135/89 H BP Systolic 129 124 135 BP Diastolic 84 85 89 Pulse Ox 98 98 98 04/09/21 18:39 04/09/21 18:44 04/09/21 18:49 Temperature Temperature Source Pulse Rate 108 H 99 102 H Blood Pressure 126/86 H 125/80 H 122/80 H BP Systolic 126 125 122 BP Diastolic 86 80 80 Pulse Ox 99 100 100 04/09/21 18:54 04/09/21 18:59 04/09/21 19:04 Temperature Temperature Source Pulse Rate 108 H 104 H 104 H Blood Pressure 140/93 H 117/77 BP Systolic 140 117 BP Diastolic 93 77 Pulse Ox 100 100 100 04/09/21 19:09 04/09/21 19:40 04/09/21 20:11 Temperature 98.1 F Temperature Source Temporal Pulse Rate 101 H 105 H Blood Pressure 123/85 H 125/78 H BP Systolic 123 125 BP Diastolic 85 78 Pulse Ox 96 04/09/21 20:26 04/09/21 20:28 Temperature Temperature Source Pulse Rate 108 H 106 H Blood Pressure 112/67 108/66 BP Systolic 112 108 BP Diastolic 67 66 Pulse Ox Weight Weight: 160 lb Body Mass Index (BMI) 26.6 Physical Exam Const alert, oriented x3 and no apparent distress General Appearance: cooperative HEENT normocephalic Head and Scalp: normocephalic Neck full ROM Chest inspection of chest normal Resp normal respiratory effort Auscultation: clear to auscultation bilaterally Cardio regular rate, regular rhythm and no murmurs GI non-tender GI Narrative: [facility] Labs Labs: Blood Type O NEGATIVE Antibody Screen POSITIVE H Hct 38.6 % (37-47) Hgb 12.7 g/dL (12.0-15.0) Rhogam given: No GBS negative O negative RPR negative HepC negative Urine tox negative HIV negative Rubella Immune HbsAG negative GC/CT negative Assessment & Plan (1) PROM (premature rupture of membranes): (2) History of anxiety: (3) Asthma: (4) Rh negative status during : (5) Term : (6) GDM, class A2: (7) COVID-19 affecting childbirth: PLAN: 1. Admit to labor and delivery, ROM plus positive 2. Covid +8 days ago, droplet precautions. Stable. 3. Routine labs 4. Epidural for pain management 5. Blood sugar per diabetic protocol 6. Pitocin for PROM augmentation 7. Dr. Manzano notified of patient admission and GDM class A2, orders for diabetic management. 8. with cough and unable to be present at , another support person present
[2021-04-09 22:10] LABS: Bedside Glucose 91 mg/dL (70-110)
[2021-04-09] MEDS: 0.9% Saline Lock 10 ML Syringe IV (22:38)
[2021-04-09] MEDS: Ibuprofen 600 MG Tablet PO (23:26)
--- NOTE | 2021-04-09 23:49 | RAD_ITS ---
STUDY: X-RAY CHEST REASON FOR EXAM: Female, 30 years old. covid+ -- SOB ,crackles to bilat posterior bases TECHNIQUE: Single AP portable view of the chest. COMPARISON: None. FINDINGS: Left lower lobe airspace disease compatible with pneumonia. Otherwise, lungs are clear. There is no demonstrated pleural abnormality. Normal size heart. Normal mediastinum and clay. Normal visualized pulmonary arteries. Normal visualized aortic arch and descending thoracic aorta. Normal visualized thoracic spine. Normal visualized ribs, clavicles, and shoulders. There is no demonstrated abnormality of the visualized soft tissue structures of the upper abdomen. RAD/Chest 1 View (Portable) IMPRESSION: Left lower lobe pneumonia Electronically Signed: Ben Coleman DO at 0:45 EDT Tel , Service support ,
[2021-04-10] VITALS (21 sets, daily range): BP systolic 105–125; BP diastolic 64–86; PULSE 77–118; RESP 16–18; TEMP 36–36.4; O2SAT 93–99
--- NOTE | 2021-04-10 00:20 | NURSING ---
Pearl RT into room to see pt. placed on 2 L 02 via NC. spo2 now 98% on 2 L. will continue to monitor
--- NOTE | 2021-04-10 00:47 | NURSING ---
PT educated on covid precautions and importance of wearing a mask covering mouth and nose while holding and when infant is within 6 feet. also discussed the importance of hand hygiene especially prior to holding . pt verbalized understanding
[2021-04-10] MEDS: Enoxaparin 40 MG/0.4 ML Syringe SC (01:29)
[2021-04-10] MEDS: AMOXICILLIN 500 MG CAPSULE PO ×4 (01:59→22:01)
[2021-04-10] MEDS: Acetaminophen 500 MG Tablet 1000 MG PO ×2 (04:34→11:12)
[2021-04-10 05:25] LABS: Hematocrit 33.5 % (37-47); Mean Corp Hgb Conc 32.8 g/dL (32-36); Mean Corpuscular Hgb 29.1 pg (27.0-32.0); Mean Corpuscular Volume 88.6 fL (81-99); Mean Platelet Vol. 9.4 fl (6.2-12.0); Platelet Count 351 K/mm3 (150-450); RBC Distribution Width CV 14.6 % (11.6-14.6); RBC Distribution Width SD 46.8 fl (35.1-43.9); Red Blood Count 3.78 M/mm3 (4.2-5.4); White Blood Count 8.9 K/mm3 (4.4-11.0)
[2021-04-10 05:25] LABS: Bedside Glucose 117 mg/dL (70-110)
--- NOTE | 2021-04-10 06:02 | NURSING ---
call placed to pharmacy in regards to amoxicillin scheduling. first dose given at 0159 and scheduled Q8 hours. per Satnam in pharmacy [facility] to give next dose at this morning at 0600
[2021-04-10] MEDS: Ibuprofen 600 MG Tablet PO ×3 (07:47→22:00)
--- NOTE | 2021-04-10 09:14 | PN.OBGYN_ITS ---
Subjective Subjective Patient has some SOB with exertion but feels well resting in bed. Pain controlled. Objective Data Objective Data Vital Signs: Vital Signs Temp Pulse Resp BP Pulse Ox 97.0 F L 86 18 113/86 H 98 04/10/21 07:49 04/10/21 07:49 04/10/21 07:49 04/10/21 07:49 04/10/21 07:49 Oxygen Flow Rate (L/min) 2 Oxygen Delivery Method Room Air Weight: 160 lb Body Mass Index (BMI) 26.6 Intake & Output: Intake and Output for Last 24 Hours 04/08/21 04/09/21 04/10/21 23:59 23:59 23:59 Intake Total 1476.7 / 1476.7 Output Total 950 / 950 Balance 1476.7 / 1476.7 -950 / -950 Lab / Micro Data Result Diagrams: 04/10/21 05:10 Labs: Laboratory Results - last 24 hr 04/09/21 14:50: Vag Amniotic Fld Detect POSITIVE H 04/09/21 16:25: WBC 10.1, RBC 4.37, Hgb 12.7, Hct 38.6, MCV 88.3, MCH 29.1, MCHC 32.9, RDW Std Deviation 47.1 H, RDW Coeff of Jose 14.7 H, Plt Count 403, MPV 9.5, Immature Gran % (Auto) 0.800, Neut % (Auto) 86.3 H, Lymph % (Auto) 8.0 L, [place] % (Auto) 4.6, Eos % (Auto) 0.1, Baso % (Auto) 0.2, Absolute Neuts (auto) 8.7 H, Absolute Lymphs (auto) 0.81 L, Nucleated RBC % 0 04/09/21 16:25: Blood Type O NEGATIVE, Antibody Screen POSITIVE H, Antibody Identification ANTI-D 04/09/21 17:11: POC Glucose 76 04/09/21 18:09: POC Glucose 73 04/09/21 18:35: Urine Opiates Screen NEGATIVE, Urine Methadone Screen NEGATIVE, Ur Barbiturates Screen NEGATIVE, Ur Phencyclidine Scrn NEGATIVE, Ur Amphetamines Screen NEGATIVE, U Methamphetamin-MDMA NEGATIVE, U Benzodiazepines Scrn NEGATIVE, Urine Cocaine Screen NEGATIVE, U Cannabinoids Screen POSITIVE H, Ur Drug Screen Comment 04/09/21 19:23: POC Glucose 70 04/09/21 20:39: POC Glucose 91 04/10/21 05:09: POC Glucose 117 H 04/10/21 05:10: WBC 8.9, RBC 3.78 L, Hgb 11.0 L, Hct 33.5 L, MCV 88.6, MCH 29.1, MCHC 32.8, RDW Std Deviation 46.8 H, RDW Coeff of Jose 14.6, Plt Count 351, MPV 9.4 Radiography Diagnostic Testing: Radiology Impression Chest X-Ray 04/09/21 23:49 IMPRESSION: Left lower lobe pneumonia Electronically Signed: Ben ColemanDO at 0:45 EDT Tel , Service support , Physical Exam Const alert, oriented x3 and no apparent distress HEENT normocephalic GI soft to palpation, non-tender and non-distended GI Narrative: fundus firm, mid & below umbilicus Extremity normal to inspection and no calf tenderness Assessment & Plan (1) Left lower lobe pneumonia: PLAN: S/p medicine consult () & appreciate input Left lower lobe pneumonia bacterial versus COVID-19 Continue with amoxicillin (2) (normal spontaneous vaginal delivery): PLAN: Routine PP care (3) COVID-19 affecting childbirth: PLAN: Per 's recommendation patient starting Decadron for her COVID-19, as oxygen saturations dropped with ambulation Plan for ambulatory pulse ox tomorrow to assess oxygen need (4) Gestational diabetes: PLAN: As patient on oral steroids plan for glucose monitoring & insulin as per
[2021-04-10] MEDS: Prenatal Vits Tablet 1 TABLET PO (15:10)
--- NOTE | 2021-04-10 17:31 | PCM.PN.HOSP ---
Subjective Subjective 30-year-old female started feeling ill from a respiratory standpoint last Friday and got tested at an outside facility for Covid and was positive over the weekend prior to her going into labor. She did have a viable vaginal on 04/09/21, her child is currently in the NICU since she was a gestational diabetic, with hypoglycemia. We were consulted to assist in managing her COVID-19 as well as a left lower lobe pneumonia. Based on the chest x-ray looks like there is a mild consolidation in the left lower lobe, this is atypical for COVID-19. She has been maintaining herself on room air though she does drop a little bit with ambulation. Objective Data Objective Data Vital Signs: Vital Signs Temp Pulse Resp BP Pulse Ox 97.3 F L 84 18 108/83 H 98 04/10/21 15:38 04/10/21 15:38 04/10/21 15:38 04/10/21 15:38 04/10/21 15:38 Oxygen Flow Rate (L/min) 2 Oxygen Delivery Method Nasal Cannula Weight: 160 lb Body Mass Index (BMI) 26.6 Intake & Output: Intake and Output for Last 24 Hours 04/09/21 04/10/21 04/11/21 03:59 03:59 03:59 Intake Total 1476.7 / 1476.7 Output Total 150 / 150 800 / 800 Balance 1326.7 / 1326.7 -800 / -800 Lab / Micro Data Result Diagrams: 04/10/21 05:10 Labs: Laboratory Results - last 24 hr 04/09/21 16:25: Blood Type O NEGATIVE, Antibody Screen POSITIVE H, Antibody Identification ANTI-D 04/09/21 18:09: POC Glucose 73 04/09/21 18:35: Urine Opiates Screen NEGATIVE, Urine Methadone Screen NEGATIVE, Ur Barbiturates Screen NEGATIVE, Ur Phencyclidine Scrn NEGATIVE, Ur Amphetamines Screen NEGATIVE, U Methamphetamin-MDMA NEGATIVE, U Benzodiazepines Scrn NEGATIVE, Urine Cocaine Screen NEGATIVE, U Cannabinoids Screen POSITIVE H, Ur Drug Screen Comment 04/09/21 19:23: POC Glucose 70 04/09/21 20:39: POC Glucose 91 04/10/21 05:09: POC Glucose 117 H 04/10/21 05:10: WBC 8.9, RBC 3.78 L, Hgb 11.0 L, Hct 33.5 L, MCV 88.6, MCH 29.1, MCHC 32.8, RDW Std Deviation 46.8 H, RDW Coeff of Jose 14.6, Plt Count 351, MPV 9.4 Radiography Diagnostic Testing: Radiology Impression Chest X-Ray 04/09/21 23:49 IMPRESSION: Left lower lobe pneumonia Electronically Signed: Ben Coleman DO at 0:45 EDT Tel , Service support , Physical Exam Const alert, oriented x3 and no apparent distress General Appearance: cooperative HEENT normocephalic and moist oral mucous membranes Eyes PERRL, EOMs intact bilaterally and conjunctivae normal Neck supple and no JVD Resp normal respiratory effort, no retractions, no use of accessory muscles and clear to auscultation bilaterally Auscultation: diminished lung sounds; Negative for crackles, rales, rhonchi or wheezes Cardio regular rate, regular rhythm, S1 normal heart sound, S2 normal heart sound and no murmurs GI soft to palpation, non-tender and non-distended; Negative for hepatosplenomegaly Extremity no clubbing, cyanosis or edema Skin no rashes or lesions noted Neuro no focal motor deficits and no sensory deficits noted Psych affect normal Appearance: appropriate Assessment & Plan Assessment/Plan (1) COVID-19 affecting childbirth: (2) Left lower lobe pneumonia: PLAN: 1. Left lower lobe pneumonia bacterial versus COVID-19 -She did test positive for COVID-19 however consolidation is not a typical presentation for Covid and is more indicative of a bacterial infection -Continue with amoxicillin -We will also start her on Decadron for her COVID-19, she was on oxygen because her saturations did drop to 93% on ambulation. -Will hold off on remdesivir, she is 9 days from symptom onset however there is no data on remdesivir and that I am aware of and therefore would prefer not to take this risk since she does want to breast-feed -Plan for an ambulatory pulse ox in the morning -Continue with albuterol as needed 2. Gestational diabetes, status post vaginal delivery 04/09/21 -Continue with post delivery OB care -Given that she will be on Decadron would continue with glucose monitoring and insulin DVT: Lovenox Charges/Coding Visit Charges Inpatient E&M: 11640 Subs Hosp L2
[2021-04-10] MEDS: dexAMETHasone 2 MG TABLET 6 MG PO (18:00)
[2021-04-10] MEDS: 0.9% Saline Lock 10 ML Syringe IV (21:58)
[2021-04-10 23:31] LABS: Bedside Glucose 120 mg/dL (70-110)
[2021-04-11] VITALS (11 sets, daily range): BP systolic 107–113; BP diastolic 65–80; PULSE 70–97; RESP 16–18; TEMP 36.3–36.8; O2SAT 94–96
[2021-04-11] MEDS: Acetaminophen 500 MG Tablet 1000 MG PO ×2 (01:31→16:22)
[2021-04-11] MEDS: AMOXICILLIN 500 MG CAPSULE PO ×2 (06:04→13:11)
[2021-04-11 06:31] LABS: Bedside Glucose 101 mg/dL (70-110)
--- NOTE | 2021-04-11 09:25 | PCM.PN.OB ---
Subjective Subjective Pain well controlled, average lochia. No bowel movement but urinating without difficulty. Would like to go home today. Objective Data Objective Data Vital Signs: Vital Signs Temp Pulse Resp BP Pulse Ox 98.2 F 88 16 107/65 94 04/11/21 08:49 04/11/21 08:51 04/11/21 08:49 04/11/21 08:51 04/11/21 09:18 Oxygen Flow Rate (L/min) 2 Oxygen Delivery Method Room Air Weight: 72.575 kg Body Mass Index (BMI) 26.6 Intake & Output: Intake and Output for Last 24 Hours 04/09/21 04/10/21 04/11/21 23:59 23:59 23:59 Intake Total 1476.7 / 1476.7 Output Total 950 / 950 Balance 1476.7 / 1476.7 -950 / -950 Lab / Micro Data Result Diagrams: 04/10/21 05:10 Labs: Laboratory Results - last 24 hr 04/10/21 21:54: POC Glucose 120 H 04/11/21 06:07: POC Glucose 101 Assessment & Plan (1) (normal spontaneous vaginal delivery): PLAN: Routine care. Ready to discharge home from a vaginal delivery standpoint. (2) COVID-19 affecting childbirth: PLAN: Management per hospitalist. Okay for discharge home from OB standpoint if okay with hospitalist. Discussed with the patient call or return if worsening shortness of breath, fevers or other concerns. She is comfortable with this plan.
--- NOTE | 2021-04-11 09:41 | PN.HOSP_ITS ---
Subjective Subjective Doing well, shortness of breath is improving slightly. Not requiring any oxygen. Objective Data Objective Data Vital Signs: Vital Signs Temp Pulse Resp BP Pulse Ox 98.2 F 88 16 107/65 94 04/11/21 08:49 04/11/21 08:51 04/11/21 08:49 04/11/21 08:51 04/11/21 09:18 Oxygen Flow Rate (L/min) 2 Oxygen Delivery Method Room Air Weight: 160 lb Body Mass Index (BMI) 26.6 Intake & Output: Intake and Output for Last 24 Hours 04/10/21 04/11/21 04/12/21 03:59 03:59 03:59 Intake Total 1476.7 / 1476.7 Output Total 150 / 150 800 / 800 Balance 1326.7 / 1326.7 -800 / -800 Lab / Micro Data Result Diagrams: 04/10/21 05:10 Labs: Laboratory Results - last 24 hr 04/10/21 21:54: POC Glucose 120 H 04/11/21 06:07: POC Glucose 101 Physical Exam Const alert, oriented x3 and no apparent distress General Appearance: cooperative HEENT normocephalic and moist oral mucous membranes Eyes PERRL, EOMs intact bilaterally and conjunctivae normal Neck supple and no JVD Resp normal respiratory effort, no retractions, no use of accessory muscles and clear to auscultation bilaterally Auscultation: diminished lung sounds; Negative for crackles, rales, rhonchi or wheezes Cardio regular rate, regular rhythm, S1 normal heart sound, S2 normal heart sound and no murmurs GI soft to palpation, non-tender and non-distended; Negative for hepatosplenomegaly Extremity no clubbing, cyanosis or edema Skin no rashes or lesions noted Neuro no focal motor deficits and no sensory deficits noted Psych affect normal Appearance: appropriate Assessment & Plan Assessment/Plan (1) COVID-19 affecting childbirth: (2) Left lower lobe pneumonia: PLAN: 1. Left lower lobe pneumonia bacterial versus COVID-19 -She did test positive for COVID-19 however consolidation is not a typical presentation for Covid and is more indicative of a bacterial infection -Continue with amoxicillin -We will also start her on Decadron for her COVID-19, she was on oxygen because her saturations did drop to 93% on ambulation. -Will hold off on remdesivir, she is 9 days from symptom onset however there is no data on remdesivir and that I am aware of and therefore would prefer not to take this risk since she does want to breast-feed -Ambulatory pulse ox pending, she is not requiring any oxygen at rest. She is okay for discharge from a Covid and pneumonia standpoint, would continue am oxicillin to complete a 5 to 7-day course and would continue Decadron to complete a 10-day course. She should remain in quarantine at home for another 10 days. Would recommend vaccination once quarantine is complete. -Continue with albuterol as needed 2. Gestational diabetes, status post vaginal delivery 04/09/21 -Continue with post delivery OB care -Given that she will be on Decadron would continue with glucose monitoring and insulin DVT: Lovenox Charges/Coding Visit Charges Inpatient E&M: 79215 Subs Hosp L2
[2021-04-11] MEDS: guaiFENesin Dm 10 ML UDC PO (10:31)
[2021-04-11] MEDS: dexAMETHasone 2 MG TABLET 6 MG PO (10:31)
[2021-04-11] MEDS: Enoxaparin 40 MG/0.4 ML Syringe SC (10:32)
[2021-04-11] MEDS: Senna/Docusate Sodium 1 Tablet PO (10:32)
[2021-04-11] MEDS: Prenatal Vits Tablet 1 TABLET PO (10:32)
[2021-04-11 10:50] LABS: Bedside Glucose 91 mg/dL (70-110)
[2021-04-11] MEDS: Ibuprofen 600 MG Tablet PO (12:56)
[2021-04-11] MEDS: 0.9% Saline Lock 10 ML Syringe IV (16:00)
[2021-04-11 16:16] LABS: Bedside Glucose 91 mg/dL (70-110)
--- NOTE | 2021-04-11 16:33 | DS.PCM_ITS ---
Providers Date of Admission: 04/09/21 Date of Discharge: 04/11/21 Primary Care Physician: Bel Primary Care Phys Consultations 04/10/21 00:00 Consult: Hospitalist Routine Consulting Provider: Bang Mccoy Reason for Consult: COVID EMERGENT Consult: Yes MD Notified: Yes Date Notified: 04/10/21 Time Notified: 00:03 Method of Notification: Page Reason For Visit: LABOR & DELIVERY Diagnosis Discharge Diagnosis (1) COVID-19 affecting childbirth: Status: Acute Code(s): O98.52 - Other viral diseases complicating childbirth; U07.1 - COVID-19 (2) Left lower lobe pneumonia: Status: Acute Code(s): J18.9 - Pneumonia, unspecified organism (3) (normal spontaneous vaginal delivery): Status: Acute Code(s): O80 - Encounter for full-term uncomplicated delivery Medications at Discharge Home Medications Prenatabs FA 1 tab PO DAILY 02/19/19 albuterol sulfate [Ventolin HFA] 2 puff INHALATION Q6H PRN PRN 02/19/19 albuterol sulfate 2.5 mg INHALATION Q4H PRN 04/09/21 amoxicillin 500 mg PO TID 6 Days #18 tab 04/11/21 dexamethasone [Decadron] 6 mg PO DAILY 8 Days #8 tab 04/11/21 ibuprofen 600 mg PO Q6H PRN 10 Days #30 tab 04/11/21 Hospital Course Operations None Procedures None Summary of Care Provided Hospital Course: Patient was admitted for labor with active COVID 19. She was diagnosed with pneumonia. She had a spontaneous vaginal delivery without complications. A hospitalist consult was obtained. Patient was placed on ant ibioitics and steroids. On PPD #2 she passed an ambulatory O2 saturation test. She was deemed medically stable for discharge by the medicine team> She was doing well from a standpoint and she was discharged home with amoxicillin and decadron. Weight / BMI Weight Weight: 72.575 kg Body Mass Index (BMI) 26.6 ABG / Lab / Microbiology Data Result Diagrams: 04/10/21 05:10 Laboratory: Laboratory Results - last 24 hr 04/10/21 21:54: POC Glucose 120 H 04/11/21 06:07: POC Glucose 101 04/11/21 10:34: POC Glucose 91 04/11/21 15:55: POC Glucose 91 D/C Instructions May resume sexual activity in: 6 weeks Please Follow Up With: Maryan Santoyo MD When: Follow up with our office in 1-2 and 6 weeks or as needed. [phone] Meaningful Use Info Meaningful Use Diagnoses (Choose all that apply): None applicable Discharge Plan Admission Admit Date/Time: 04/09/21 15:30 Primary Reason for Your Visit: Vaginal delivery, COVID 19 Attending Provider: Junaid Carlin Primary Care Provider: Care Physician,No Primary Consulting Providers: Bang Mccoy Instructions Patient Instructions: After a Vaginal , Coronavirus Disease 2019 (COVID- 19): Caring for Yourself or Others Discharge Orders/Prescriptions Prescriptions: New ibuprofen [ibuprofen] 600 MG tablet 600 mg PO Q6H PRN (Reason: Pain) 10 Days Qty: 30 RF: 1 amoxicillin 500 mg tablet 500 mg PO TID 6 Days Qty: 18 RF: 0 dexamethasone [Decadron] 6 mg tablet 6 mg PO DAILY 8 Days Qty: 8 RF: 0 Continued albuterol sulfate [Ventolin HFA] 1 INHALER inhaler 2 puff inhalation Q6H PRN PRN (Reason: Asthma) RF: 0 Prenatabs FA 1 TABLET tablet 1 tab PO DAILY RF: 0 albuterol sulfate 2.5 mg /3 mL (0.083 %) Solution For Nebulization 2.5 mg INHALATION Q4H PRN (Reason: Shortness Of Breath Or Wheezing) RF: 0 Discontinued ferrous sulfate 325 MG tablet 325 mg PO DAILY RF: 0 calcium carbonate 500 MG tablet,chewable 500 mg PO DAILY RF: 0 Novolin 70-30 FlexPen U-100 100 unit/mL (70-30) Insulin Pen 16 unit SUBCUT QHS RF: 0 Referrals / Follow Up: Care Physician,No Primary [Primary Care Provider] - Disposition Disposition (needs filled in before D/C Order can be placed): Home, Self Care
[2021-04-12 14:33] LABS: Pathology Specimen OB SEE PATHOLOGY REPORT
== END 2021-04-11 19:18 | disposition home or self-care (01) | DRG 560 ==
LOC: WPOUT 15:35 → WP 04-10 07:30
PROVIDERS: Admitting Provider Advanced Practice Midwife; Visit Provider Family Medicine
DX: O42.92 Full-term premature rupture of membranes, unspecified as to length of time between rupture and onset of labor (principal); O98.52 Other viral diseases complicating childbirth; U07.1 COVID-19; J12.82 Pneumonia due to coronavirus disease 2019; O99.52 Diseases of the respiratory system complicating childbirth; J15.9 Unspecified bacterial pneumonia; J45.909 Unspecified asthma, uncomplicated; O24.424 Gestational diabetes mellitus in childbirth, insulin controlled; O69.81X0 Labor and delivery complicated by cord around neck, without compression, not applicable or unspecified; O70.0 First degree perineal laceration during delivery; Z3A.38 38 weeks gestation of pregnancy; Z37.0 Single live birth
CPT/HCPCS: 59025; 59050; 71045; 80307; 82962; 84112; 85025; 85027; 86850; 86870; 86900; 86901; 88307; 99218; J7120; A4216; G0378; J2405